=== PATIENT | male | born 1940 | race Two or more races ===

== ENCOUNTER 2018-03-02 10:47 | Inpatient (IN) | payer MEDICARE ==
[~2018-03-02] VITALS: Ht 177.8 cm; Wt 88.2 kg
[2018-03-02] MEDS ORDERED: TAMS-11 PO (11:19)
[2018-03-02] MEDS ORDERED: ONDANSETRON ODT 4 MG PO ONE (11:30)
[2018-03-02 11:53] LABS: MEAN CORPUSCULAR HEMOGLOBIN 34.6 pg (27.5-34.5); MEAN CORPUSCULAR HGB CONC 34.3 g/dL (33.2-36.2); MEAN PLATELET VOLUME 7.2 fL (7.4-10.4); PLATELET COUNT 201 x10^3/uL (130-400); RED BLOOD COUNT 4.43 x10^6/uL (4.38-5.82); RED CELL DISTRIBUTION WIDTH 14.7 % (9.4-14.8)
[2018-03-02] MEDS ORDERED: ONDANSETRON ODT 4 MG ONE (11:58)
[2018-03-02 12:03] LABS: ALANINE AMINOTRANSFERASE 34 U/L (12-78); ALBUMIN 4.1 g/dL (3.4-5.0); ANION GAP 12 mmol/L (5-15); CALCIUM 9.1 mg/dL (8.5-10.1); CHLORIDE 90 mmol/L (98-107)
[2018-03-02 12:06] LABS: ALKALINE PHOSPHATASE 109 U/L (45-117); BILIRUBIN,TOTAL 1.6 mg/dL (0.2-1.0); CREATININE 0.91 mg/dL (0.7-1.3); TOTAL PROTEIN 7.6 g/dL (6.4-8.2)
[2018-03-02 12:53] LABS: BASOPHILS # (AUTO) 0.04 x10^3/uL (0-0.1); BASOPHILS % (AUTO) 0 % (0-1); EOSINOPHILS # (AUTO) 0.01 x10^3/uL (0-0.4); EOSINOPHILS % (AUTO) 0 % (1-7); LYMPHOCYTES # (AUTO) 10.46 x10^3/uL (1-3.4); LYMPHOCYTES % (AUTO) 62 % (22-44); MD SCAN; MONOCYTES % (AUTO) 1 % (2-9); NEUTROPHILS # (AUTO) 6.18 x10^3/uL (1.8-6.8); NEUTROPHILS % (AUTO) 37 % (42-75)
[2018-03-02 13:11] LABS: MICROSCOPIC INDICATED
[2018-03-02 13:15] LABS: CULTURE INDICATED? NO
[2018-03-02] MEDS ORDERED: OMNIPAQUE 350 MG/ML, 100ML BOTTLE ONE (13:49)
[2018-03-02] MEDS ORDERED: SODIUM CHLORIDE 0.9% 1,000 ML IV SCH (14:30)
[2018-03-02] MEDS ORDERED: METOCLOPRAMIDE 5 MG/ML, 2ML IVPush PRN (15:00)
[2018-03-02] MEDS ORDERED: DOCUSATE 100 MG CAPSULE PO PRN (15:00)
[2018-03-02] MEDS ORDERED: ACETAMINOPHEN 325 MG TABLET PO PRN (15:00)
[2018-03-02] MEDS ORDERED: ONDANSETRON 2MG/ML, 2ML IVPush PRN (15:00)
[2018-03-02] MEDS ORDERED: LABETALOL 5MG/ML, 20ML IVPush PRN (15:00)
[2018-03-02] MEDS ORDERED: ENALAPRILAT 1.25 MG/ML, 2ML IVPush PRN (15:00)
[2018-03-02] MEDS ORDERED: BISACODYL 10 MG SUPP PR PRN (15:00)
[2018-03-02] MEDS ORDERED: POLYETHYLENE GLYCOL 17 GM PACKET PO PRN (15:00)
[2018-03-02 15:11] VITALS: BP 137/93
[2018-03-02] MEDS: NS + 20MEQ KCL 1,000 ML IV SCH (15:36)
[2018-03-02] MEDS: ENOXAPARIN 40 MG/0.4 ML SQ SCH (15:37)
[2018-03-02 19:25] VITALS: BP 139/89
[2018-03-02] MEDS: PANTOPRAZOLE 40 MG IV IVPush SCH (20:34)
[2018-03-03] MEDS: NS + 20MEQ KCL 1,000 ML IV SCH (01:12)
[2018-03-03 02:11] VITALS: BP 116/78
[2018-03-03 05:03] LABS: ALBUMIN 3.1 g/dL (3.4-5.0); ANION GAP 9 mmol/L (5-15); CALCIUM 7.4 mg/dL (8.5-10.1); CHLORIDE 101 mmol/L (98-107)
[2018-03-03 05:04] LABS: MEAN CORPUSCULAR HEMOGLOBIN 33.7 pg (27.5-34.5); MEAN CORPUSCULAR HGB CONC 33.5 g/dL (33.2-36.2); MEAN CORPUSCULAR VOLUME 100.6 fL (81-97); MEAN PLATELET VOLUME 7.5 fL (7.4-10.4); PLATELET COUNT 180 x10^3/uL (130-400); RED BLOOD COUNT 3.76 x10^6/uL (4.38-5.82); RED CELL DISTRIBUTION WIDTH 14.5 % (9.4-14.8)
[2018-03-03 05:07] LABS: ALANINE AMINOTRANSFERASE 25 U/L (12-78); ALKALINE PHOSPHATASE 83 U/L (45-117); BILIRUBIN,TOTAL 1.3 mg/dL (0.2-1.0); TOTAL PROTEIN 5.9 g/dL (6.4-8.2)
[2018-03-03 05:37] LABS: BASOPHILS # (AUTO) 0.05 x10^3/uL (0-0.1); BASOPHILS % (AUTO) 0 % (0-1); EOSINOPHILS # (AUTO) 0.02 x10^3/uL (0-0.4); EOSINOPHILS % (AUTO) 0 % (1-7); LYMPHOCYTES # (AUTO) 8.93 x10^3/uL (1-3.4); LYMPHOCYTES % (AUTO) 65 % (22-44); MD SCAN; MONOCYTES % (AUTO) 2 % (2-9); NEUTROPHILS # (AUTO) 4.59 x10^3/uL (1.8-6.8); NEUTROPHILS % (AUTO) 33 % (42-75)
[2018-03-03 07:48] VITALS: BP 114/73
[2018-03-03] MEDS: SODIUM CHLORIDE 0.9% 1,000 ML IV SCH ×2 (09:26→20:44)
[2018-03-03] MEDS: PANTOPRAZOLE 40 MG IV IVPush SCH ×2 (09:26→20:44)
[2018-03-03] MEDS: METOCLOPRAMIDE 5 MG/ML, 2ML IVPush SCH ×3 (09:26→20:45)
[2018-03-03 09:46] LABS: FOLATE LEVEL > 20.0 ng/mL (3.1-17.5)
[2018-03-03 13:24] VITALS: BP 117/80
[2018-03-03] MEDS: ENOXAPARIN 40 MG/0.4 ML SQ SCH (15:38)
[2018-03-03 21:07] VITALS: BP 115/77
[2018-03-04 02:45] VITALS: BP 139/88
[2018-03-04] MEDS: METOCLOPRAMIDE 5 MG/ML, 2ML IVPush SCH ×4 (03:01→20:07)
[2018-03-04 04:40] LABS: MEAN CORPUSCULAR HEMOGLOBIN 34.7 pg (27.5-34.5); MEAN CORPUSCULAR HGB CONC 33.7 g/dL (33.2-36.2); MEAN CORPUSCULAR VOLUME 102.9 fL (81-97); MEAN PLATELET VOLUME 7.3 fL (7.4-10.4); PLATELET COUNT 151 x10^3/uL (130-400); RED BLOOD COUNT 3.66 x10^6/uL (4.38-5.82); RED CELL DISTRIBUTION WIDTH 14.9 % (9.4-14.8)
[2018-03-04 04:52] LABS: ALBUMIN 3.2 g/dL (3.4-5.0); ANION GAP 8 mmol/L (5-15); CALCIUM 7.7 mg/dL (8.5-10.1); CHLORIDE 108 mmol/L (98-107)
[2018-03-04] MEDS: SODIUM CHLORIDE 0.9% 1,000 ML IV SCH ×2 (04:58→16:04)
[2018-03-04 04:59] LABS: ALANINE AMINOTRANSFERASE 23 U/L (12-78); ALKALINE PHOSPHATASE 78 U/L (45-117); CREATININE 0.82 mg/dL (0.7-1.3); TOTAL PROTEIN 5.9 g/dL (6.4-8.2)
[2018-03-04 05:13] LABS: BASOPHILS # (AUTO) 0.01 x10^3/uL (0-0.1); BASOPHILS % (AUTO) 0 % (0-1); EOSINOPHILS # (AUTO) 0.02 x10^3/uL (0-0.4); EOSINOPHILS % (AUTO) 0 % (1-7); LYMPHOCYTES # (AUTO) 6.15 x10^3/uL (1-3.4); LYMPHOCYTES % (AUTO) 71 % (22-44); MD SCAN; MONOCYTES # (AUTO) 0.16 x10^3/uL (0.2-0.8); MONOCYTES % (AUTO) 2 % (2-9); NEUTROPHILS # (AUTO) 2.35 x10^3/uL (1.8-6.8); NEUTROPHILS % (AUTO) 27 % (42-75)
[2018-03-04] MEDS: PANTOPRAZOLE 40 MG IV IVPush SCH ×2 (08:01→20:07)
[2018-03-04 08:08] VITALS: BP 128/85
[2018-03-04] MEDS: TAMSULOSIN 0.4 MG CAP.ER.24H PO SCH (10:36)
[2018-03-04 13:15] VITALS: BP 123/82
[2018-03-04] MEDS: ENOXAPARIN 40 MG/0.4 ML SQ SCH (15:59)
[2018-03-04 19:49] VITALS: BP 118/76
[2018-03-05 01:58] VITALS: BP 155/87
[2018-03-05] MEDS: METOCLOPRAMIDE 5 MG/ML, 2ML IVPush SCH (03:40)
[2018-03-05] MEDS: SODIUM CHLORIDE 0.9% 1,000 ML IV SCH (03:40)
[2018-03-05 08:15] VITALS: BP 146/98
[2018-03-05] MEDS: TAMSULOSIN 0.4 MG CAP.ER.24H PO SCH (08:24)
[2018-03-05] MEDS: PANTOPROZOLE 40MG TABLET PO SCH (08:24)
[2018-03-05 10:20] VITALS: BP 145/79
[2018-03-05 13:52] VITALS: BP 148/90
[2018-03-05] MEDS ORDERED: MAGNESIUM CITRATE 300ML ORAL SOL PO PRN (14:30)
[2018-03-05] MEDS: ENOXAPARIN 40 MG/0.4 ML SQ SCH (16:28)
[2018-03-05 19:58] VITALS: BP 177/98
[2018-03-05 21:00] VITALS: BP 174/95
[2018-03-06 01:00] VITALS: BP 163/107
[2018-03-06 07:15] VITALS: BP 146/93
[2018-03-06] MEDS: TAMSULOSIN 0.4 MG CAP.ER.24H PO SCH (08:31)
[2018-03-06] MEDS: PANTOPROZOLE 40MG TABLET PO SCH (08:31)
== END 2018-03-06 11:00 | disposition home or self-care (01) | DRG 392 ==
LOC: ED 14:23 → EDIP 14:24 → ED 14:46 → 3NW 15:00
PROVIDERS: ADMIT Internal Medicine; ATTEND Internal Medicine
DX: K31.84 Gastroparesis (principal); I48.2 Chronic atrial fibrillation; E87.1 Hypo-osmolality and hyponatremia; N13.8 Other obstructive and reflux uropathy; R17 Unspecified jaundice; D75.89 Other specified diseases of blood and blood-forming organs; E86.0 Dehydration; E87.6 Hypokalemia; N40.1 Benign prostatic hyperplasia with lower urinary tract symptoms; I45.10 Unspecified right bundle-branch block; K59.00 Constipation, unspecified; R31.9 Hematuria, unspecified
CPT/HCPCS: 36415; 74022; 74177; 74220; 78264; 80053; 81001; 82607; 82746; 83690; 83735; 84100; 85025; 86677; 87338; 93005; 99285; J1650; J3480; Q0162; Q9967; A9541; C9113; C9898; J2765; J7030

== ENCOUNTER 2019-02-04 13:00 | Observation (INO) | payer MEDICARE ==
[~2019-02-04] VITALS: Ht 177.8 cm; Wt 94.2 kg
[~2019-02-04 13:00] MED LIST: TAMS-11 PO
[2019-02-04] MEDS ORDERED: LACTATED RINGERS 1,000 ML IV SCH (13:17)
[2019-02-04] MEDS ORDERED: FINA5TAB4 PO (13:48)
[2019-02-04] MEDS ORDERED: APIX2.5T PO (13:48)
[2019-02-04 13:50] VITALS: BP 93/58
[2019-02-04 14:06] LABS: MICROSCOPIC NOT IND
[2019-02-04] MEDS ORDERED: FENTANYL PF 250 MCG/5ML ONE (15:26)
[2019-02-04] MEDS ORDERED: CEFAZOLIN 1,000 MG ONE ×2 (15:26)
[2019-02-04] MEDS ORDERED: SODIUM CHLORIDE 0.9% PF 10ML ONE (15:26)
[2019-02-04] MEDS ORDERED: PHENYLEPHRINE 10 MG/ML ONE (15:41)
[2019-02-04] MEDS ORDERED: PROPOFOL 10 MG/ML, 20ML ONE (15:41)
[2019-02-04] MEDS ORDERED: FENTANYL PF 100 MCG/2ML IV PRN (16:00)
[2019-02-04] MEDS ORDERED: ONDANSETRON ODT 8 MG PO PRN (16:00)
[2019-02-04] MEDS ORDERED: HYDROmorphone 2 MG/ML, 1ML IVPush PRN (16:00)
[2019-02-04] MEDS ORDERED: OXYcodone 5 MG/5 ML ORAL.SOL UDC PO PRN (16:00)
[2019-02-04] MEDS ORDERED: PROMETHAZINE 12.5 MG SUPP PR PRN (16:00)
[2019-02-04] MEDS ORDERED: MEPERIDINE/PF 25MG/0.5ML IVPush PRN (16:00)
[2019-02-04] MEDS ORDERED: hydrALAzine 20 MG/ML, 1ML IV PRN (16:00)
[2019-02-04] MEDS ORDERED: ONDANSETRON 2MG/ML, 2ML IV PRN ×2 (16:00→18:30)
[2019-02-04] MEDS ORDERED: LABETALOL 5MG/ML, 20ML IV PRN (16:00)
[2019-02-04] MEDS ORDERED: PROMETHAZINE 25 MG/ML, 1ML IM PRN ×2 (16:00)
[2019-02-04] MEDS ORDERED: PROMETHAZINE 25 MG/ML, 1ML IV PRN (16:00)
[2019-02-04] MEDS ORDERED: PROMETHAZINE 25 MG SUPP PR PRN (16:00)
[2019-02-04] MEDS ORDERED: MORPHINE SULFATE 4 MG/ML, 1ML IVPush PRN (16:00)
[2019-02-04] MEDS ORDERED: OXYcodone 5 MG/5 ML ORAL.SOL UDC ONE (17:08)
[2019-02-04] MEDS ORDERED: OPIUM/BELLADONNA SUPP.RECT 16.2-30 MG PR PRN (18:30)
[2019-02-04] MEDS ORDERED: HYDROcodone/APAP 5/325 TABLET PO PRN (18:30)
[2019-02-04] MEDS ORDERED: morphine SULFATE 10 MG/ML, 1ML IV PRN (18:30)
[2019-02-04] MEDS ORDERED: ACETAMINOPHEN 325 MG TABLET PO PRN (18:30)
[2019-02-04] MEDS: LACTATED RINGERS 1,000 ML IV SCH (21:00)
[2019-02-04 21:07] VITALS: BP 109/73
[2019-02-05 00:43] VITALS: BP 104/66
[2019-02-05 04:35] VITALS: BP 117/78
[2019-02-05] MEDS: LACTATED RINGERS 1,000 ML IV SCH ×2 (06:26→14:30)
[2019-02-05 06:54] VITALS: BP 106/70
[2019-02-05] MEDS ORDERED: APIXABAN 2.5 MG TABLET PO SCH (09:00)
[2019-02-05 12:19] VITALS: BP 121/83
== END 2019-02-05 15:00 | disposition home or self-care (01) ==
LOC: OUT 13:00 → 4NOR 18:10 → OUT 18:23 → DCLOUNGE 02-05 14:42
PROVIDERS: ADMIT Urology; ATTEND Urology
DX: N13.8 Other obstructive and reflux uropathy (principal); N32.0 Bladder-neck obstruction; N32.89 Other specified disorders of bladder; N40.1 Benign prostatic hyperplasia with lower urinary tract symptoms
CPT/HCPCS: 52630; 81003; 87086; 88305; 93005; G0378; J0690; J2370; J2704; J3010; J7120

== ENCOUNTER 2019-02-09 01:09 | Emergency (ER) | payer MEDICARE ==
[~2019-02-09] VITALS: Ht 177.8 cm; Wt 92.2 kg
[~2019-02-09 01:09] MED LIST changes: +APIX2.5T PO; +FINA5TAB4 PO
--- NOTE | 2019-02-09 01:21 | NUR ---
SPECIMEN DRAWN OFF OF CASE PROXIMAL SITE AND TAKEN TO LAB.
[2019-02-09 01:51] LABS: MEAN CORPUSCULAR HEMOGLOBIN 32.7 pg (27.5-34.5); MEAN CORPUSCULAR HGB CONC 33.4 g/dL (33.2-36.2); MEAN PLATELET VOLUME 7.5 fL (7.4-10.4); PLATELET COUNT 186 x10^3/uL (130-400); RED BLOOD COUNT 3.74 x10^6/uL (4.38-5.82); RED CELL DISTRIBUTION WIDTH 14.6 % (9.4-14.8)
[2019-02-09 01:59] LABS: ANION GAP 6 mmol/L (5-15); CHLORIDE 111 mmol/L (98-107); CREATININE 1.23 mg/dL (0.7-1.3)
[2019-02-09 02:07] LABS: CULTURE INDICATED? YES; MICROSCOPIC INDICATED
[2019-02-09 02:09] LABS: BASOPHILS # (AUTO) 0.08 x10^3/uL (0-0.1); BASOPHILS % (AUTO) 1 % (0-1); EOSINOPHILS # (AUTO) 0.09 x10^3/uL (0-0.4); EOSINOPHILS % (AUTO) 1 % (1-7); LYMPHOCYTES # (AUTO) 13.68 x10^3/uL (1-3.4); LYMPHOCYTES % (AUTO) 81 % (22-44); MD SCAN; MONOCYTES # (AUTO) 0.22 x10^3/uL (0.2-0.8); MONOCYTES % (AUTO) 1 % (2-9); NEUTROPHILS # (AUTO) 2.78 x10^3/uL (1.8-6.8); NEUTROPHILS % (AUTO) 17 % (42-75)
[2019-02-09 03:29] VITALS: BP 136/90
--- NOTE | 2019-02-09 03:30 | NUR ---
PT CASE FLUSHED WITH LARGE CLOTS COMING OUT. URINE IS DRAINING FROM CATHETER.
== END 2019-02-09 04:26 | disposition home or self-care (01) ==
LOC: ED 04:20
DX: R31.9 Hematuria, unspecified (principal)
CPT/HCPCS: 36415; 80048; 81001; 85025; 87086; 99283; 99284

== ENCOUNTER 2019-02-09 20:48 | Emergency (ER) | payer MEDICARE ==
[~2019-02-09] VITALS: Ht 177.8 cm; Wt 92.4 kg
--- NOTE | 2019-02-09 21:13 | NUR ---
FIRST CONTACT WITH PT. PT STATES "I CAME BACK D/T NO OUTPUT FROM URINARY CATHETER ( IRRIGATED YESTERDAY IN ER BUT NOT WORKING NOW )" PT'S AOX4. RESPS EVEN AND UNLABORED. PT DENIES ANY PAIN AT THIS TIME. BP/SPO2 MONITORS IN PLACE. CALL LIGHT WITHIN REACH.
--- NOTE | 2019-02-09 21:39 | NUR ---
Assist RN: bladder irrigated with 500 ml sterile water. no clots noted. balloon deflated and re-inflated. hunt draining well.
--- NOTE | 2019-02-09 22:06 | NUR ---
re-evaluation done. patient discharged with instruction. verbalized understanding.
[2019-02-09 22:07] VITALS: BP 122/86
== END 2019-02-09 22:11 | disposition home or self-care (01) ==
LOC: ED 21:12
DX: T83.098A Other mechanical complication of other urinary catheter, initial encounter (principal); I48.91 Unspecified atrial fibrillation
CPT/HCPCS: 51700; 99284